=== PATIENT | female | born 1975 | race American Indian/Alaskan Native ===

== ENCOUNTER 2020-01-05 13:29 | Outpatient (CLI) | payer OTHER ==
[2020-01-05 14:17] LABS: Hematocrit 35.9 % (30.3-42.9); Hemoglobin 11.7 gm/dl (10.1-14.3); Mean Corpuscular HGB Conc 33 % (30-34); Mean Corpuscular Volume 85 fl (79-97); Platelet Count 310 K/mm3 (140-440); Red Blood Count 4.21 M/mm3 (3.65-5.03); Red Cell Distribution Width 15.4 % (13.2-15.2)
[2020-01-05 14:29] LABS: Erythrocyte Sedimentation Rate 9 mm/Hr (0-20)
[2020-01-05 14:37] LABS: Alanine Aminotransferase 26 units/L (7-56); Albumin 4.1 g/dL (3.9-5); BUN/Creatinine Ratio 18; Blood Urea Nitrogen 14 mg/dL (7-17); Calcium 9.2 mg/dL (8.4-10.2); Hemolysis Index 4; Iron 90 ug/dL (37-170); Total Iron Binding Capacity 388 mcg/dL (250-450)
== END 2020-01-05 13:30 | disposition home or self-care (01) ==
LOC: LAB 13:29
PROVIDERS: ATTEND Specialist
DX: G62.9 Polyneuropathy, unspecified (principal)
CPT/HCPCS: 36415; 80053; 82306; 82607; 82747; 83550; 83921; 84207; 84446; 84590; 85027; 85652; 86038; 86225

== ENCOUNTER 2020-01-09 17:22 | Outpatient (CLI) | payer OTHER ==
[2020-01-09 18:32] LABS: INR 1.26 (0.87-1.13)
== END 2020-01-09 17:23 | disposition home or self-care (01) ==
LOC: LAB 17:22
DX: Z01.812 Encounter for preprocedural laboratory examination (principal)
CPT/HCPCS: 36415; 85610